=== PATIENT | female | born 1940 | race Two or more races ===

== ENCOUNTER 2024-05-18 18:50 | Emergency (ER) | payer OTHER ==
[~2024-05-18] VITALS: Ht 160 cm; Wt 69.9 kg
[2024-05-18 21:14] LABS: HEMATOCRIT 33.4 % (36.0-45.00); HEMOGLOBIN 10.9 g/dL (12.0-15.00); MEAN CELL VOLUME 87.2 fL (80.00-100.00); MEAN CORPUSCULAR HEMOGLOBIN 28.5 pg (27.00-32.0); MEAN CORPUSCULAR HGB CONC 32.7 g/dl (32.0-36.0); PLATELET COUNT 229 K/uL (150-450); RED BLOOD COUNT 3.84 M/uL (4.00-6.00); RED CELL DISTRIBUTION WIDTH 14.5 % (11.5-14.5)
[2024-05-18] MEDS ORDERED: CIPRO500 MG PO (21:25)
== END 2024-05-18 21:27 | disposition home or self-care (01) ==
LOC: ER 18:51
PROVIDERS: General Practice
DX: S90.129A Contusion of unspecified lesser toe(s) without damage to nail, initial encounter (principal); X58.XXXA Exposure to other specified factors, initial encounter; Y93.89 Activity, other specified; Y92.89 Other specified places as the place of occurrence of the external cause; Y99.8 Other external cause status; I10 Essential (primary) hypertension; E11.9 Type 2 diabetes mellitus without complications; Z88.2 Allergy status to sulfonamides; Z88.6 Allergy status to analgesic agent

== ENCOUNTER 2024-08-10 21:37 | Emergency (ER) | payer OTHER ==
[~2024-08-10] VITALS: Ht 170.2 cm; Wt 74.8 kg
[~2024-08-10 21:37] MED LIST: CIPRO500 MG PO
[2024-08-10] MEDS ORDERED: FARXIGA10 MG (21:46)
[2024-08-10] MEDS ORDERED: CHILDREN'S ASPI81 MG (21:46)
[2024-08-10] MEDS ORDERED: HORIZANT300 MG (21:46)
[2024-08-10] MEDS ORDERED: SOLIQUA 100 UNIT3 ML (21:46)
[2024-08-10] MEDS ORDERED: PLAVIX75 MG (21:46)
[2024-08-10] MEDS ORDERED: TRIBENZOR 40-11 EAC1 (21:47)
[2024-08-10] MEDS ORDERED: EZALLOR SPRINKL20 MG (21:47)
[2024-08-10] MEDS ORDERED: CARVEDILOL ER40 MG (21:47)
[2024-08-10] MEDS ORDERED: KETO10TA2 PO (22:54)
== END 2024-08-10 23:36 | disposition home or self-care (01) ==
LOC: ER 21:37
DX: S79.811A Other specified injuries of right hip, initial encounter (principal); W19.XXXA Unspecified fall, initial encounter; Y93.89 Activity, other specified; Y92.091 Bathroom in other non-institutional residence as the place of occurrence of the external cause; Y99.8 Other external cause status; I10 Essential (primary) hypertension; E11.9 Type 2 diabetes mellitus without complications; Z79.4 Long term (current) use of insulin; Z88.0 Allergy status to penicillin; Z88.2 Allergy status to sulfonamides